=== PATIENT | female | born 1945 | race Caucasian/White ===

== ENCOUNTER 2024-08-23 00:43 | Outpatient (RCR) | payer MEDICARE, SELFPAY ==
[2024-08-23] MEDS: ABATACEPT 750 MG in Normal Saline 100 ML 200 MG IVPB (11:26)
[2024-08-23] MEDS: Normal Saline Flush 10 ML SYR IVP (11:26)
== END 2024-09-16 23:59 | disposition home or self-care (01) ==
LOC: INF 00:43
PROVIDERS: Visit Provider Nurse Practitioner Family
DX: M06.9 Rheumatoid arthritis, unspecified (principal)
CPT/HCPCS: 96365; J0129

== ENCOUNTER 2024-09-20 02:46 | Outpatient (RCR) | payer MEDICARE, SELFPAY ==
[2024-09-20] MEDS: Normal Saline Flush 5 ML SYR IVP (11:26)
[2024-09-20] MEDS: ABATACEPT 750 MG in Normal Saline 100 ML 200 MG IVPB (11:26)
== END 2024-10-17 23:59 | disposition home or self-care (01) ==
LOC: INF 02:46
PROVIDERS: Visit Provider Nurse Practitioner Family
DX: M06.9 Rheumatoid arthritis, unspecified (principal)
CPT/HCPCS: 96365; J0129

== ENCOUNTER 2024-11-15 00:20 | Outpatient (RCR) | payer MEDICARE, SELFPAY ==
[2024-10-18 10:59] LABS: HCT 40.1 % (36.0-46.0); HGB 12.3 g/dL (11.2-15.7); MCH 24.6 pg (27.0-33.0); MCHC 30.7 % (32.0-36.0); MCV 80 fL (80-95); MPV 9.6 fL (8.0-11.0); Platelet Count 305 10^3/uL (130-400); RBC 5.01 10^6/uL (3.93-5.22); RDW 18.8 % (11.7-14.6); RDW-SD 52.7 fL; WBC 7.76 10^3/uL (4.4-10.8)
[2024-10-18 11:01] LABS: ESR 23 mm/hr (0-30)
[2024-10-18 11:17] LABS: ALT 28 U/L (14-59); AST 12 U/L (15-37); Albumin 3.8 g/dL (3.4-5.0); Alkaline Phosphatase 74 U/L (46-116); Anion Gap 9.8 mmol/L (3-11); BUN 10 mg/dL (7-18); Bilirubin, Total 0.4 mg/dL (0.2-1.0); C-Reactive Protein < 0.50 mg/dL (<or=0.5); CO2 28.2 mmol/L (21.0-32.0); Calcium 9.7 mg/dL (8.5-10.1); Chloride 103 mmol/L (98-107); Glucose 222 mg/dL (74-106); Potassium 3.8 mmol/L (3.5-5.1); Sodium 141 mmol/L (136-145); Total Protein 7.4 g/dL (6.4-8.2)
[2024-10-18] MEDS: ABATACEPT 750 MG in Normal Saline 100 ML 200 MG IVPB (11:30)
[2024-10-18] MEDS: Normal Saline Flush 5 ML SYR IVP (11:30)
[2024-11-15] MEDS: Normal Saline Flush 5 ML SYR IVP (10:28)
[2024-11-15] MEDS: ABATACEPT 750 MG in Normal Saline 100 ML 200 MG IVPB (11:02)
== END 2024-11-16 23:59 | disposition home or self-care (01) ==
LOC: INF 00:20
PROVIDERS: Visit Provider Nurse Practitioner Family
DX: M06.9 Rheumatoid arthritis, unspecified (principal)
CPT/HCPCS: 36415; 80053; 85027; 85652; 96365; 86140; J0129

== ENCOUNTER 2024-12-13 02:03 | Outpatient (RCR) | payer MEDICARE, SELFPAY ==
[2024-12-13] MEDS: ABATACEPT 750 MG in Normal Saline 100 ML 200 MG IVPB (11:03)
[2024-12-13] MEDS: Normal Saline Flush 5 ML SYR IVP (11:51)
== END 2024-12-17 23:59 | disposition home or self-care (01) ==
LOC: INF 02:03
PROVIDERS: Visit Provider Nurse Practitioner Family
DX: M06.9 Rheumatoid arthritis, unspecified (principal)
CPT/HCPCS: 96365; J0129

== ENCOUNTER 2025-01-10 02:44 | Outpatient (RCR) | payer MEDICARE, SELFPAY ==
[2025-01-10] MEDS: ABATACEPT 750 MG in Normal Saline 100 ML 200 MG IVPB (11:03)
[2025-01-10] MEDS: Normal Saline Flush 10 ML SYR IVP (11:03)
== END 2025-01-16 23:59 | disposition home or self-care (01) ==
LOC: INF 02:44
PROVIDERS: Visit Provider Nurse Practitioner Family
DX: M06.9 Rheumatoid arthritis, unspecified (principal)
CPT/HCPCS: 96365; J0129

== ENCOUNTER 2025-02-07 02:51 | Outpatient (RCR) | payer MEDICARE, SELFPAY ==
[2025-02-07 10:38] LABS: HCT 40.1 % (36.0-46.0); HGB 12.1 g/dL (11.2-15.7); MCH 24.3 pg (27.0-33.0); MCHC 30.2 % (32.0-36.0); MCV 81 fL (80-95); MPV 9.6 fL (8.0-11.0); Platelet Count 277 10^3/uL (130-400); RBC 4.98 10^6/uL (3.93-5.22); RDW 18.9 % (11.7-14.6); RDW-SD 54.7 fL; WBC 6.85 10^3/uL (4.4-10.8)
[2025-02-07 10:39] LABS: ESR 15 mm/hr (0-30)
[2025-02-07 11:11] LABS: ALT 28 U/L (14-59); AST 14 U/L (15-37); Albumin 3.8 g/dL (3.4-5.0); Alkaline Phosphatase 72 U/L (46-116); Anion Gap 9.8 mmol/L (3-11); BUN 9 mg/dL (7-18); Bilirubin, Total 0.4 mg/dL (0.2-1.0); CO2 27.2 mmol/L (21.0-32.0); Calcium 9.1 mg/dL (8.5-10.1); Chloride 100 mmol/L (98-107); Estimated GFR 73.98 (mL/min/1.73m2); Glucose 250 mg/dL (74-106); Potassium 3.7 mmol/L (3.5-5.1); Sodium 137 mmol/L (136-145); Total Protein 7.2 g/dL (6.4-8.2)
[2025-02-07 11:17] LABS: C-Reactive Protein < 0.50 mg/dL (<or=0.5)
[2025-02-07] MEDS: ABATACEPT 750 MG in Normal Saline 100 ML 200 MG IVPB (11:20)
[2025-02-07] MEDS: Normal Saline Flush 10 ML SYR IVP (11:20)
== END 2025-02-16 23:59 | disposition home or self-care (01) ==
LOC: INF 02:51
PROVIDERS: Specialist; Visit Provider Nurse Practitioner Family
DX: M06.9 Rheumatoid arthritis, unspecified (principal)
CPT/HCPCS: 36415; 80053; 85027; 85652; 96365; 86140; J0129

== ENCOUNTER 2025-03-07 09:39 | Outpatient (CLI) | payer MEDICARE, SELFPAY ==
[2025-03-07] MEDS: Normal Saline Flush 10 ML SYR IVP (11:15)
[2025-03-07] MEDS: ABATACEPT 750 MG in Normal Saline 100 ML 200 MG IVPB (11:16)
== END 2025-03-07 09:40 | disposition home or self-care (01) ==
PROVIDERS: Visit Provider Nurse Practitioner Family
DX: M06.9 Rheumatoid arthritis, unspecified (principal)
CPT/HCPCS: 96365; J0129

== ENCOUNTER 2025-04-04 04:06 | Outpatient (CLI) | payer MEDICARE, SELFPAY ==
[2025-04-04] MEDS: ABATACEPT 750 MG in Normal Saline 100 ML 200 MG IVPB (10:46)
[2025-04-04] MEDS: Normal Saline Flush 10 ML SYR IVP (10:46)
== END 2025-04-04 04:07 | disposition home or self-care (01) ==
LOC: INF 04:06
PROVIDERS: Visit Provider Specialist
DX: M06.9 Rheumatoid arthritis, unspecified (principal)
CPT/HCPCS: 96365; J0129

== ENCOUNTER 2025-05-02 02:26 | Outpatient (CLI) | payer MEDICARE, SELFPAY ==
[2025-05-02] MEDS: Normal Saline Flush 10 ML SYR IVP (10:58)
[2025-05-02] MEDS: ABATACEPT 750 MG in Normal Saline 100 ML 200 MG IVPB (10:58)
== END 2025-05-02 02:27 | disposition home or self-care (01) ==
PROVIDERS: Visit Provider Specialist
DX: M06.9 Rheumatoid arthritis, unspecified (principal)
CPT/HCPCS: 36415; 80053; 85027; 85652; 96365; 86140; J0129

== ENCOUNTER 2025-05-02 02:27 | Outpatient (RCR) | payer MEDICARE, SELFPAY ==
[2025-05-02 11:13] LABS: HCT 34.6 % (36.0-46.0); HGB 10.8 g/dL (11.2-15.7); MCH 25.4 pg (27.0-33.0); MCHC 31.2 % (32.0-36.0); MCV 81 fL (80-95); MPV 9.7 fL (8.0-11.0); Platelet Count 220 10^3/uL (130-400); RBC 4.26 10^6/uL (3.93-5.22); RDW 18.5 % (11.7-14.6); RDW-SD 53.6 fL; WBC 5.01 10^3/uL (4.4-10.8)
[2025-05-02 11:15] LABS: ESR 9 mm/hr (0-30)
[2025-05-02 11:37] LABS: ALT 47 U/L (14-59); AST 27 U/L (15-37); Albumin 3.3 g/dL (3.4-5.0); Alkaline Phosphatase 59 U/L (46-116); Anion Gap 11.0 mmol/L (3-11); BUN 9 mg/dL (7-18); Bilirubin, Total 0.4 mg/dL (0.2-1.0); CO2 27.0 mmol/L (21.0-32.0); Calcium 8.7 mg/dL (8.5-10.1); Chloride 102 mmol/L (98-107); Estimated GFR 64.23 (mL/min/1.73m2); Glucose 278 mg/dL (74-106); Potassium 3.9 mmol/L (3.5-5.1); Sodium 140 mmol/L (136-145); Total Protein 6.3 g/dL (6.4-8.2)
[2025-05-02 11:38] LABS: C-Reactive Protein < 0.50 mg/dL (<or=0.5)
== END 2025-05-19 23:59 | disposition home or self-care (01) ==
LOC: INF 02:27
PROVIDERS: Specialist; Visit Provider Nurse Practitioner Family
DX: M06.9 Rheumatoid arthritis, unspecified (principal)
CPT/HCPCS: 80053; 85027; 85652; 86140

== ENCOUNTER 2025-05-31 01:40 | Outpatient (CLI) | payer MEDICARE, SELFPAY ==
[2025-05-31] MEDS: ABATACEPT 750 MG in Normal Saline 100 ML 200 MG IVPB (11:19)
[2025-05-31] MEDS: Normal Saline Flush 10 ML SYR IVP (11:19)
== END 2025-05-31 01:41 | disposition home or self-care (01) ==
LOC: INF 01:40
PROVIDERS: Visit Provider Specialist
DX: M06.9 Rheumatoid arthritis, unspecified (principal)
CPT/HCPCS: 96365; J0129

== ENCOUNTER 2025-06-27 00:56 | Outpatient (CLI) | payer MEDICARE, SELFPAY ==
[2025-06-27] MEDS: ABATACEPT 750 MG in Normal Saline 100 ML 200 MG IVPB (11:16)
[2025-06-27] MEDS: Normal Saline Flush 10 ML SYR IVP (11:16)
[2025-06-27 11:51] LABS: Abs Immature Grans 0.02 10^3/uL (0.0-0.06); HCT 38.4 % (36.0-46.0); HGB 11.8 g/dL (11.2-15.7); Immature Grans % 0.3 %; MCH 24.9 pg (27.0-33.0); MCHC 30.7 % (32.0-36.0); MCV 81 fL (80-95); MPV 9.7 fL (8.0-11.0); Platelet Count 241 10^3/uL (130-400); RBC 4.74 10^6/uL (3.93-5.22); RDW 18.0 % (11.7-14.6); RDW-SD 51.4 fL; WBC 5.95 10^3/uL (4.4-10.8)
[2025-06-27 12:11] LABS: TSH 0.93 uIU/mL (0.55-4.78)
[2025-06-27 12:13] LABS: ALT 47 U/L (10-49); AST 46 U/L (<34); Albumin 4.2 g/dL (3.2-5.0); Alkaline Phosphatase 60 U/L (46-116); Anion Gap 9.3 mmol/L (3-11); BUN 11 mg/dL (9-23); Bilirubin, Total 0.6 mg/dL (0.2-1.2); CO2 26.7 mmol/L (20.0-31.0); Calcium 9.6 mg/dL (8.3-10.6); Chloride 102 mmol/L (98-107); Glucose 214 mg/dL (74-106); Potassium 3.9 mmol/L (3.5-5.1); Sodium 138 mmol/L (136-145); Total Protein 6.8 g/dL (5.7-8.2)
[2025-06-27 14:40] LABS: Hemoglobin A1C 8.4 % (<5.7)
[2025-06-27 14:53] LABS: Cholesterol 188 mg/dL (<200); HDL Cholesterol 39 mg/dL (>40)
== END 2025-06-27 00:57 | disposition home or self-care (01) ==
LOC: INF 00:56
PROVIDERS: Visit Provider Nurse Practitioner Family
DX: M06.9 Rheumatoid arthritis, unspecified (principal); E11.65 Type 2 diabetes mellitus with hyperglycemia
CPT/HCPCS: 36415; 80053; 80061; 96365; 83036; 84439; 84443; 85025; J0129